=== PATIENT | male | born 1955 | race Caucasian/White ===

== ENCOUNTER 2016-10-02 10:50 | Day surgery (SDC) | payer SELFPAY ==
[~2016-10-02 10:50] MED LIST: ACETAMINOPHEN 325 MG TABLET PO PRN; ACETYLCHOLINE CHLORIDE 20 DROP KIT IO PRN; BUPIVACAINE HCL/PF 30 ML VIAL IJ PRN; CYCLOPENTOLATE HCL 20 DROP BTL RIGHTEYE PRN; DEXTROSE 5%-0.5 NORMAL SALINE 1,000 ML IV PRN; EPINEPHrine 1 MG/ML AMPUL IO PRN; HYALURONATE SODIUM 0.4 ML DISP.SYRIN IO PRN; HYALURONATE SODIUM 0.85 ML DISP.SYRIN IO PRN; LIDOCAINE HCL/PF 200 MG/5 ML AMPUL TP PRN; LIDOCAINE HCL/PF 5 ML VIAL IO PRN; NORMAL SALINE 3 ML BOX IV PRN; TETRACAINE HCL 150 DROP BTL OP PRN
--- OUTSIDE RECORDS SUMMARY | 2016-10-02 10:56 | XMS REPORT | Continuity of Care Document ---
:1955 Author Organization [facility] ([facility]) Address [place] [address] Phone [phone] Care Team Providers Name Role Phone Javad Umana Primary Care Provider [phone] Source Comments This disclosure is being made pursuant to the Care Everywhere program, applicable federal and state laws, and may not contain all informaitonavailable regarding this patient.[facility] ([facility]) Active Allergies and Adverse Reactions Not on File Current Medications Not on file Active Problems Not on file Social History Tobacco Use Types Packs/Day Years Used Date Never Assessed Plan of Care Health Maintenance Due Date Last Done Comments HCV Screening 1955 Hepatitis B Vaccine (1 of 3 - Primary Series) 1955 Tdap Vaccine 1964 Lipid Disorder Screening 1971 Td Vaccine 1971 Colonoscopy 2003 Prostate Cancer Screening 2003 Zoster Vaccine 2013 Influenza Vaccine: Seasonal (#1) 01/31/2016 Results from Last 3 Months Not on file
[2016-10-02] MEDS: PHENYLEPHRINE HCL 50 DROP BTL RIGHTEYE PRN ×3 (11:14→11:44)
[2016-10-02] MEDS: TROPICAMIDE 150 DROP BTL RIGHTEYE PRN ×3 (11:14→11:44)
[2016-10-02] MEDS ORDERED: DEXTROSE 5%-0.5 NORMAL SALINE 1,000 ML IV ONE (11:33)
[2016-10-02 14:02] VITALS: BP 140/78
== END 2016-10-02 10:51 | disposition home or self-care (01) ==
LOC: AMB 10:50
PROVIDERS: ATTEND Ophthalmology
PROC: 08RJ3JZ Replacement of Right Lens with Synthetic Substitute, Percutaneous Approach (ICD-10-PCS; principal; 2016-10-02 12:30)
DX: H26.9 Unspecified cataract (principal); I10 Essential (primary) hypertension; F17.210 Nicotine dependence, cigarettes, uncomplicated; Z68.30 Body mass index [BMI] 30.0-30.9, adult

== ENCOUNTER 2016-10-16 09:34 | Day surgery (SDC) | payer SELFPAY ==
[~2016-10-16 09:34] MED LIST changes: +CYCLOPENTOLATE HCL 20 DROP BTL LEFTEYE PRN; -CYCLOPENTOLATE HCL 20 DROP BTL RIGHTEYE PRN
--- OUTSIDE RECORDS SUMMARY | 2016-10-16 09:39 | XMS REPORT | Continuity of Care Document ---
:1955 Author Organization [facility] ([facility]) [place] [address] Phone [phone] Care Team Providers Name Role Phone Javad Umana Primary Care Provider [phone] Source Comments This disclosure is being made pursuant to the Care Everywhere program, applicable federal and state laws, and may not contain all informaitonavailable regarding this patient.[facility] ([facility]) Active Allergies and Adverse Reactions Not on [...]
[2016-10-16] MEDS: PHENYLEPHRINE HCL 50 DROP BTL LEFTEYE PRN ×3 (10:05→10:29)
[2016-10-16] MEDS: TROPICAMIDE 150 DROP BTL LEFTEYE PRN ×3 (10:05→10:29)
[2016-10-16] MEDS ORDERED: RINGERS SOLUTION,LACTATED 1,000 ML IV ONE (10:15)
[2016-10-16 11:50] VITALS: BP 137/74
== END 2016-10-16 09:35 | disposition home or self-care (01) ==
LOC: AMB 09:34
PROVIDERS: ATTEND Ophthalmology
PROC: 08RK3JZ Replacement of Left Lens with Synthetic Substitute, Percutaneous Approach (ICD-10-PCS; principal; 2016-10-16 11:00)
DX: H25.12 Age-related nuclear cataract, left eye (principal); I10 Essential (primary) hypertension; F17.210 Nicotine dependence, cigarettes, uncomplicated; Z68.30 Body mass index [BMI] 30.0-30.9, adult